=== PATIENT | male | born 1955 | race Caucasian/White ===

== ENCOUNTER → 2023-08-14 08:25 | Outpatient (REF) | payer MEDICARE, OTHER, SELFPAY ==
[2023-08-14 10:38] LABS: Hematocrit 48.1 % (39.0-52.0); Hemoglobin 16.4 g/dL (13.0-18.0); Mean Corp Hgb Conc. 34.1 g/dL (33.0-37.0); Mean Corpuscular Hgb 31.5 pg (27.0-31.0); Mean Corpuscular Volume 92.3 fL (80.0-94.0); Mean Platelet Volume 10.7 fL (7.4-10.4); Platelet Count 207 10^3/uL (130-400); Red Blood Cell Count 5.21 10^6/uL (4.70-6.10); Red Cell Dist. Width 12.4 % (11.5-14.5); White Blood Cell Count 5.1 10^3/uL (4.8-10.8)
== END ==
LOC: SDSPAT 08:25
PROVIDERS: ATTENDING PHYSICIAN Specialist; FAMILY PHYSICIAN Family Medicine
DX: Z01.818 Encounter for other preprocedural examination (principal)
CPT/HCPCS: 36415; 85027; 93005

== ENCOUNTER 2023-08-16 06:09 | Day surgery (SDC) | payer MEDICARE, OTHER, SELFPAY ==
[2023-08-14 10:00] VITALS: BMI 32.9
[2023-08-16] VITALS (10 sets, daily range): BP systolic 105–154; BP diastolic 63–93; BMI 32.9
[2023-08-16] MEDS: TYLENOL 1000 MG PO (06:29)
[2023-08-16] MEDS: NORMOSOL-R 1000 IV (06:29)
[2023-08-16] MEDS: CELEBREX 200 MG PO (06:29)
[2023-08-16] MEDS: LOPRESSOR 25 MG PO (06:47)
[2023-08-16] MEDS: DILAUDID 0.5 MG IV (09:35)
== END 2023-08-16 11:36 | disposition home or self-care (01) ==
LOC: SDS 06:09
PROVIDERS: ATTENDING PHYSICIAN Specialist
DX: S83.512A Sprain of anterior cruciate ligament of left knee, initial encounter (principal); S83.232A Complex tear of medial meniscus, current injury, left knee, initial encounter; X58.XXXA Exposure to other specified factors, initial encounter; M22.42 Chondromalacia patellae, left knee
CPT/HCPCS: 29888; 29881; C1713

== ENCOUNTER → 2023-12-06 10:20 | Outpatient (REF) | payer MEDICARE, OTHER, SELFPAY ==
[2023-12-06 12:48] LABS: Blood Urea Nitrogen 21 mg/dl (9-20); Calcium 9.7 mg/dl (8.4-10.2); Carbon Dioxide 29 mmol/L (22-30); Chloride 107 mmol/L (98-107); Glucose 85 mg/dl (70-99); Potassium 4.4 mmol/L (3.5-5.1); Sodium 142 mmol/L (135-145); eGFR > 60.00
== END ==
LOC: HWLAB 10:20
PROVIDERS: ATTENDING PHYSICIAN Family Medicine
DX: H53.2 Diplopia (principal)
CPT/HCPCS: 36415; 80048

== ENCOUNTER → 2023-12-10 13:32 | Outpatient (REF) | payer MEDICARE, OTHER, SELFPAY | LOC: HWRAD 13:32 | PROVIDERS: ATTENDING PHYSICIAN Family Medicine | DX: H53.2 Diplopia (principal) | CPT/HCPCS: 70496; 70498; Q9967 ==

== ENCOUNTER → 2023-12-20 11:52 | Outpatient (REF) | payer MEDICARE, OTHER, SELFPAY | LOC: HWRAD 11:52 | PROVIDERS: ATTENDING PHYSICIAN Family Medicine | DX: R93.89 Abnormal findings on diagnostic imaging of other specified body structures (principal) | CPT/HCPCS: 71046 ==

== ENCOUNTER → 2023-12-26 15:48 | Outpatient (REF) | payer MEDICARE, OTHER, SELFPAY | LOC: RAD 15:48 | PROVIDERS: ATTENDING PHYSICIAN Family Medicine | DX: R93.89 Abnormal findings on diagnostic imaging of other specified body structures (principal) | CPT/HCPCS: 71250 ==

== ENCOUNTER → 2024-01-08 13:54 | Outpatient (REF) | payer MEDICARE, OTHER, SELFPAY | LOC: HWRAD 13:54 | PROVIDERS: ATTENDING PHYSICIAN Family Medicine | DX: R93.1 Abnormal findings on diagnostic imaging of heart and coronary circulation (principal) | CPT/HCPCS: 75571 ==

== ENCOUNTER → 2024-03-09 15:28 | Outpatient (REF) | payer MEDICARE, OTHER, SELFPAY | LOC: MRI 3T 15:28 | PROVIDERS: ATTENDING PHYSICIAN Specialist; FAMILY PHYSICIAN Family Medicine | DX: C61 Malignant neoplasm of prostate (principal) | CPT/HCPCS: 72197; A9575 ==

== ENCOUNTER → 2024-03-18 12:33 | Outpatient (REF) | payer MEDICARE, OTHER, SELFPAY | LOC: RCS 12:33 | PROVIDERS: ATTENDING PHYSICIAN Nurse Practitioner; FAMILY PHYSICIAN Family Medicine | DX: R06.09 Other forms of dyspnea (principal); I47.29 Other ventricular tachycardia | CPT/HCPCS: 93017; 93350 ==

== ENCOUNTER → 2024-06-03 12:51 | Outpatient (REF) | payer MEDICARE, OTHER, SELFPAY | LOC: HWRAD 12:51 | PROVIDERS: ATTENDING PHYSICIAN Family Medicine | DX: R91.1 Solitary pulmonary nodule (principal) | CPT/HCPCS: 71250 ==

== ENCOUNTER → 2024-08-07 07:03 | Outpatient (REF) | payer MEDICARE, OTHER, SELFPAY | LOC: PAVMRI 07:03 | PROVIDERS: ATTENDING PHYSICIAN Specialist; FAMILY PHYSICIAN Family Medicine | DX: M25.561 Pain in right knee (principal) | CPT/HCPCS: 73721 ==

== ENCOUNTER → 2025-03-26 11:31 | Outpatient (REF) | payer MEDICARE, OTHER, SELFPAY | LOC: HWRAD 11:31 | PROVIDERS: ATTENDING PHYSICIAN Internal Medicine Cardiovascular Disease; FAMILY PHYSICIAN Family Medicine; REFERRING PHYSICIAN Physician Assistant | DX: R06.09 Other forms of dyspnea (principal); R07.89 Other chest pain; I49.1 Atrial premature depolarization; R42 Dizziness and giddiness | CPT/HCPCS: 72052; 78452; 93017; A9500 ==

== ENCOUNTER → 2025-06-04 09:29 | Outpatient (REF) | payer MEDICARE, OTHER, SELFPAY | LOC: RAD 09:29 | PROVIDERS: ATTENDING PHYSICIAN Physician Assistant | DX: M54.50 Low back pain, unspecified (principal) | CPT/HCPCS: 72110 ==